=== PATIENT | female | born 1970 | race Caucasian/White ===

== ENCOUNTER 2019-12-10 13:15 | Emergency (ER) | payer OTHER, SELFPAY ==
[2019-12-10 13:21] VITALS: BP 126/85; PULSE 90; RESP 14; TEMP 36.6; O2SAT 100
--- NOTE | 2019-12-10 13:29 | ED.ALLEREA ---
HPI - Allergic Reaction General Chief complaint: Allergic Reaction Stated complaint: allergic reaction Time Seen by Provider: 12/10/19 13:30 Source: patient and RN notes reviewed Mode of arrival: ambulatory Limitations: no limitations History of Present Illness HPI narrative: This is a 49 years old female presents to the office for an evaluation of an allergic reaction to sun chaudhari lotion. States, she woke up with rash after she applied sun-chaudhari lotion. Denies any other associated symptoms include difficulty breathing, swollen lips or facial rash. She has tried prednisone in the past with similar situation and it works great. Denies sick contact. Related Data Home Medications Medication Instructions Recorded Confirmed levothyroxine 75 mcg PO DAILY 12/10/19 12/10/19 Allergies Allergy/AdvReac Type Severity Reaction Status Date / Time No Known Allergies Allergy Verified 12/10/19 13:28 Review of Systems Review of Systems: Narrative: CONSTITUTIONAL: Denies fever or feeling ill ENT: Denies congestion, sore throat, difficult swallowing CARDIOVASCULAR: Denies chest pain RESPIRATORY: Denies dyspnea GASTROINTESTINAL: Denies nausea, vomiting, diarrhea. SKIN: Reports generalize itchy rash on her body; except face MUSCULOSKELETAL: Denies joints pain NEUROLOGIC: Denies lightheaded PMFSH Past Medical History Medical History Allergic rhinitis Hypothyroid Mammogram normal (~2011) Family History Family History Father Family history of malignant neoplasm Mother Family history of malignant neoplasm of breast in first degree relative Sibling Family history of malignant neoplasm of thyroid Other Heart disease Hypertension Social History Social History Smoking status: Never smoker Alcohol intake: current Comments At time of signature, I agree with nursing past medical, surgical, social and family history. There is no relevant family history pertinent to the presenting complaint. Exam Narrative: Exam Narrative: GENERAL: This is a well-nourished, well-developed patient, in no apparent distress. EYES: Sclera clear/white. Vision is grossly intact. CARDIOVASCULAR: Regular rate and rhythm without murmurs, gallops, or rubs. RESPIRATORY: Clear to auscultation. Breath sounds equal bilaterally. No wheezes, rales, or rhonchi. GASTROINTESTINAL: Abdomen soft, non-tender, nondistended. Bowel sounds are active. No hepato-splenomegaly, or palpable masses. No guarding. SKIN: generalize macular-erythema rash noted in upper and lower extremities include torso; no rash noted on face. No erik line or edematous/wheal. NEURO: awake, alert, and oriented to person, place and time. There were no obvious focal neurologic abnormalities. Steady gait [place] Coma Scale Eye Opening: Spontaneous 4 [place] Coma Scale Motor: Obeys Commands 6 [place] Coma Scale Verbal: Oriented 5 Course Vital Signs Vital signs: Vital Signs Temperature 97.8 F 12/10/19 13:21 Pulse Rate 90 12/10/19 13:21 Respiratory Rate 14 12/10/19 13:21 Blood Pressure 126/85 12/10/19 13:21 Pulse Oximetry 100 12/10/19 13:21 Temperature 97.8 F 12/10/19 13:21 Pulse Rate 90 12/10/19 13:21 Respiratory Rate 14 12/10/19 13:21 Blood Pressure 126/85 12/10/19 13:21 Pulse Oximetry 100 12/10/19 13:21 MDM - Allergic Reaction MDM Narrative Medical decision making narrative: Discharge instructions reviewed with patient, as well as provided in writing per nursing staff. The instructions also include specific and strict return/GO TO THE ER as well as f/u information. All questions have been answered, and the patient deny any further questions with discharge and discharge plan. Differential Diagnosis Differential diagnosis: Likely allergic reaction, contact dermatitis, advers
== END 2019-12-10 13:44 | disposition home or self-care (01) ==
PROVIDERS: Emergency Provider Nurse Practitioner; PCP Family Medicine
DX: L23.2 Allergic contact dermatitis due to cosmetics (principal); E03.9 Hypothyroidism, unspecified
CPT/HCPCS: 99213; G0463

== ENCOUNTER 2022-01-24 00:26 | Day surgery (SDC) | payer OTHER, SELFPAY ==
[2022-01-13 10:19] VITALS: BMI 33.2
--- NOTE | 2022-01-23 12:40 | WPDANESEPPF ---
Anes - Initial Pre Proc Eval Procedure: Operation Date: 01/24/22 10:30 Proposed Procedures p Screening Colonoscopy - Eduard Wright MD Date/Time: 01/23/22 12:40 Surgeon: Eduard Wright MD Pre Op Diagnosis: neoplasm screening Patient Data Age: 51 Gender: F Height: 1.6 m Weight: 85 kg Allergies Allergy/AdvReac Type Severity Reaction Status Date / Time No Known Allergies Allergy Verified 01/24/22 09:12 Home Medications Medication Instructions Recorded Confirmed Type atorvastatin 10 mg tablet See Rx Instructions .Route 08/16/21 01/24/22 Rx .COMPLEX #90 tabs levothyroxine 100 mcg tablet 100 mcg PO DAILY #90 tabs 11/11/21 01/24/22 Rx Patient hx anesthesia problems: none Family hx anesthesia problems: none Results Review: All pre-operative results and documents have been reviewed as part of the pre-operative evaluation. COUNT INCLUDES THE [facility] Past Medical History Medical History (Updated 01/24/22 @ 09:54 by Eduard Wright MD) Allergic rhinitis Colon cancer screening Hyperlipidemia Hypothyroid Mammogram normal (~2011) Family History Family History Father Family history of malignant neoplasm Mother Family history of malignant neoplasm of breast in first degree relative Sibling Family history of malignant neoplasm of thyroid Other Heart disease Hypertension Social History Social History (Updated 11/11/21 @ 10:36 by Annabel aTy CMA) Alcohol intake: current Drinks per week: 2 Living arrangements: with family Anes - Eval Final PreProcedure Day of Procedure 01/23/22 12:40 Patient weight: obese Heart: regular rate and rhythm Lungs: clear to auscultation Airway: Mallampati scale class II Neurological: alert and oriented Last oral intake: >/= 8 hours ASA classification: II Emergent: no Anesthetic plan: proceed Anesthesia type and monitoring: general GIVS and standard monitoring Results Review: All pre-operative results and documents have been reviewed as part of the pre-operative evaluation. Informed Consent: The patient's anesthetic plan and its attendant risks and benefits were discussed with the patient/family/POA. Questions were solicited and answers provided to the satisfaction of the patient/family/POA.
[2022-01-24 09:10] VITALS: BP 128/100; PULSE 94; RESP 16; TEMP 36.4; O2SAT 100; BMI 34.0
[2022-01-24] MEDS: LACTATED RINGERS 1,000 ML 150 ML IV CONT (09:30)
--- NOTE | 2022-01-24 09:53 | PM.HPGS ---
History of Present Illness History of Present Illness Consent: Risks, benefits, and alternatives have been discussed and questions answered. Patient agrees to proceed with procedure. Chief complaint: neoplasm screening Narrative: Jennifer Hyde is a 51 year old female here for first screening colonoscopy Review of Systems Constitutional: Constitutional: Denies headache(s) and Denies weakness Eyes: Eyes: Denies blurry vision ENT: Reports Normal hearing present, Denies headache(s) and Denies neck pain Cardiovascular: Cardiovascular: Denies chest pain and Denies dyspnea Respiratory: Respiratory: Denies dyspnea Gastrointestinal: Gastrointestinal: Reports no additional gastrointestinal complaints Genitourinary: Genitourinary: Denies dysuria Musculoskeletal: Musculoskeletal: Denies neck pain Integumentary/Breasts: Skin/Breast: Denies dry skin Neurologic: Reports Normal hearing present, Denies headache(s) and Denies weakness Psychiatric: Psychiatric: Denies anxiety Endocrine: Endocrine: Denies change in body appearance Hematologic/Lymphatic: Hematologic/Lymphatic: Denies easy bleeding Allergic/Immunologic: Allergic/Immunologic: Denies urticaria PMF Past Medical History Medical History (Updated 01/24/22 @ 09:54 by Eduard Wright MD) Allergic rhinitis Colon cancer screening Hyperlipidemia Hypothyroid Mammogram normal (~2011) Family History Family History Father Family history of malignant neoplasm Mother Family history of malignant neoplasm of breast in first degree relative Sibling Family history of malignant neoplasm of thyroid Other Heart disease Hypertension Social History Social History (Updated 11/11/21 @ 10:36 by Annabel Tay CMA) Alcohol intake: current Drinks per week: 2 Living arrangements: with family Meds Home Medications and Allergies Home Medications Medication Instructions Recorded Confirmed Type atorvastatin 10 mg tablet See Rx Instructions .Route 08/16/21 01/24/22 Rx .COMPLEX #90 tabs levothyroxine 100 mcg tablet 100 mcg PO DAILY #90 tabs 11/11/21 01/24/22 Rx Allergies Allergy/AdvReac Type Severity Reaction Status Date / Time No Known Allergies Allergy Verified 01/24/22 09:12 Vital Signs Vital Signs - 24 hr 01/24/22 09:10 Temperature 97.6 F Pulse Rate 94 Respiratory Rate 16 Blood Pressure 128/100 H Pulse Oximetry 100 Oxygen Delivery Room Air Exam Const: General: comfortable and no acute distress HENMT: General nose exam: Normal nares present Eyes: General: appearance normal, both eyes and all related structures Neck: Neck: no JVD Resp: Auscultation: clear to auscultation bilaterally Cardio: Rate: regular rate Rhythm: regular rhythm GI: Inspection: non-distended GI Palp: Yes Soft to palpation Skin: General skin exam: normal color Neuro: General: gait normal Speech: normal speech Extrem: General: normal to inspection Psych: Mental Status: mental status grossly normal Assessment and Plan Assessment and plan (1) Colon cancer screening: Code(s): Z12.11 - Encounter for screening for malignant neoplasm of colon Status: Acute Assessment and Plan: colonoscopy
[2022-01-24 10:22] VITALS: BP 111/79; PULSE 84; RESP 23; O2SAT 100
--- NOTE | 2022-01-24 10:24 | SUR.OPER ---
2nd Transverse colon polyp unretrieved, Dr. Dacosta aware, no further orders received.
[2022-01-24 10:32] VITALS: BP 116/83; PULSE 79; RESP 21; O2SAT 100
[2022-01-24 10:42] VITALS: BP 126/92; PULSE 64; RESP 21; O2SAT 100
== END 2022-01-24 10:52 | disposition home or self-care (01) ==
PROVIDERS: PCP Family Medicine; Visit Provider Internal Medicine Gastroenterology
PROC: 0DJD8ZZ Inspection of Lower Intestinal Tract, Via Natural or Artificial Opening Endoscopic (ICD-10-PCS; CPT 45378; principal; 2022-01-24 10:30)
DX: Z12.11 Encounter for screening for malignant neoplasm of colon (principal); D12.0 Benign neoplasm of cecum; K63.5 Polyp of colon; K57.30 Diverticulosis of large intestine without perforation or abscess without bleeding; K64.8 Other hemorrhoids; E78.5 Hyperlipidemia, unspecified; E03.9 Hypothyroidism, unspecified; E66.9 Obesity, unspecified; Z68.34 Body mass index [BMI] 34.0-34.9, adult
CPT/HCPCS: 45385; 88305; J2704; J7120

== ENCOUNTER 2024-08-15 15:52 | Outpatient (CLI) | payer OTHER, SELFPAY ==
--- NOTE | ~2024-08-15 | MR_ITS ---
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 TECHNIQUE: Magnetic resonance imaging (MRI) of the left fore/mid foot was performed without intraveno us contrast. Sequences included sagittal T1-weighted FSE, sagittal fluid sensitive FSE STIR, coronal PD-weighted FS FSE, coronal T1-weighted FSE, axial PD-weighted FS FSE, and axial PD-weighted FSE. COMPARISON: None FINDINGS: Bone alignment in the left mid and forefoot is normal with no fracture or pathologic marrow replacing process. There is likely osteoarthritis related mild subarticular cystlike changes at the medial cun eiform at the junction of its its articulations with the navicula and middle cuneiform. Additional mi ld osteoarthritis without degenerative subarticular changes at the first metatarsophalangeal and a fe w tarsal metatarsal joints. Marrow signal is otherwise unremarkable. Visualized portions of the flexo r and extensor tendons are normal. The Lisfranc ligament complex along with the collateral ligament c omplex at the metatarsophalangeal and interphalangeal joints are normal. There is increased signal in the forefoot involving the second and third dorsal and first-third plantar interossei muscles as wel l as the abductor hallucis transverse head muscle without appreciable associated fatty muscular atrop hy which can be seen with acute neuropathy involving portions of the distribution of the deep lateral plantar nerve. The remaining musculature of the mid and forefoot appears unremarkable. There is a small ganglion cys t along the medial margin of the medial cuneiform which appears to arise from the first tarsal metata rsal joint. No joint effusions, tenosynovitis or other abnormal fluid collections. IMPRESSION: 1. Muscular edema involving several of the dorsal and plantar interossei muscles as well as the trans verse head of the abductor hallucis muscle which could be seen with acute denervation change involvin g a portion of the distribution of the deep branch of the lateral plantar nerve. Reviewed, dictated and finalized at location B. [employer] IMPRESSION: 1. Muscular edema involving several of the dorsal and plantar interossei muscle s as well as the transverse head of the abductor hallucis muscle which could be seen with acute denervation change involving a portion of the distribution of the deep branch of the lateral plantar nerve.
== END 2024-08-15 15:53 | disposition home or self-care (01) ==
PROVIDERS: PCP Orthopaedic Surgery; Visit Provider Orthopaedic Surgery
DX: G57.62 Lesion of plantar nerve, left lower limb (principal); R60.9 Edema, unspecified
CPT/HCPCS: 73718

== ENCOUNTER 2025-01-02 12:40 | Outpatient (CLI) | payer OTHER, SELFPAY ==
--- NOTE | ~2025-01-02 | MM_ITS ---
EXAMINATION: MM screening [facility] BI w helio INDICATION: Asymptomatic, referred for screening mammogram COMPARISON: None available TECHNIQUE: Digital Breast Tomosynthesis CC, MLO views of Both breasts were obtained with computer-ai ded detection to assist in interpretation of the study. FINDINGS: The breasts are almost entirely fatty. There is an asymmetry seen on the MLO view in the superior subareolar location in the right breast. Elsewhere, there are no mammographic features of malignancy. IMPRESSION: 1. Right breast Asymmetry. 2. No evidence of malignancy in the Left breast. RECOMMENDATION: Right breast Diagnostic mammogram with true lateral, appropriate spot compression views and an ultras ound if needed. BI-RADS 0, INCOMPLETE, NEEDS ADDITIONAL IMAGING EVALUATION Reviewed, dictated and finalized at location B. IMPRESSION: 1. Right breast Asymmetry. 2. No evidence of malignancy in the Left breast. RECOMMENDATION: Right breast Diagnostic mammogram with true lateral, appropriate spot compressi on views and an ultrasound if needed. BI-RADS 0, INCOMPLETE, NEEDS ADDITIONAL IMAGING EVALUATION
== END 2025-01-02 12:41 | disposition home or self-care (01) ==
LOC: MICIMG 12:41
PROVIDERS: PCP Family Medicine; Visit Provider Obstetrics & Gynecology
DX: R92.8 Other abnormal and inconclusive findings on diagnostic imaging of breast (principal); Z12.31 Encounter for screening mammogram for malignant neoplasm of breast
CPT/HCPCS: 77063; 77067

== ENCOUNTER 2025-01-24 10:37 | Outpatient (CLI) | payer OTHER, SELFPAY ==
--- NOTE | ~2025-01-24 | MM_ITS ---
EXAMINATION: MM diagnostic corie RT w helio HISTORY: Right breast asymmetry TECHNIQUE: Additional 3-D tomosynthesis images of the right breast were performed and synthetic 2-D i mages were generated. CAD analysis was submitted and interpreted. COMPARISON: 01/02/2025 BREAST PARENCHYMAL COMPOSITION:Not Dense. The breasts are almost entirely fatty FINDINGS: Right breast asymmetry effaces with spot compression. No persistent mass lesion or distorti on. No suspicious microcalcification. IMPRESSION: No mammographic evidence for malignancy. BI-RADS Category 1: Negative Reviewed, dictated and finalized at location .
== END 2025-01-24 10:38 | disposition home or self-care (01) ==
PROVIDERS: PCP Family Medicine; Visit Provider Obstetrics & Gynecology
DX: R92.8 Other abnormal and inconclusive findings on diagnostic imaging of breast (principal)
CPT/HCPCS: 77061; 77065; G0279

== ENCOUNTER 2025-07-24 00:24 | Day surgery (SDC) | payer OTHER, SELFPAY ==
[2025-01-06 11:53] VITALS: BMI 32.8
[2025-07-05 10:52] VITALS: BMI 32.8
[2025-07-24 08:42] VITALS: BP 124/90; PULSE 104; RESP 16; TEMP 36.7; O2SAT 99; BMI 33.3
[2025-07-24] MEDS: LACTATED RINGERS 1,000 ML 150 ML IV CONT (08:52)
--- NOTE | 2025-07-24 10:02 | WPDANESEPPF ---
Anes - Initial Pre Proc Eval Procedure: Operation Date: 07/24/25 10:00 Proposed Procedures p Colonoscopy - Eduard Wright MD Date/Time: 07/24/25 10:02 Surgeon: Eduard Wright MD Pre Op Diagnosis: Personal hx of colon polyps Patient Data Age: 54 Gender: F Height: 1.6 m Weight: 85.4 kg Last Vital Signs Temp 36.7 C 07/24/25 08:42 Pulse 104 H 07/24/25 08:42 Resp 16 07/24/25 08:42 BP 124/90 07/24/25 08:42 Pulse Ox 99 07/24/25 08:42 O2 Del Method Room Air 07/24/25 08:42 Allergies Allergy/AdvReac Type Severity Reaction Status Date / Time No Known Allergies Allergy Verified 07/24/25 08:37 Home Medications ?Medication ?Instructions ?Recorded ?Confirmed ?Type naproxen 500 mg tablet See Rx Instructions .Route 10/24/24 07/24/25 Rx .COMPLEX #60 tabs semaglutide (weight loss) 0.25 0.25 mg subcut WEEKLY 01/06/25 07/24/25 History mg/0.5 mL subcutaneous pen injector atorvastatin 10 mg tablet See Rx Instructions .Route 02/20/25 07/24/25 Rx .COMPLEX #90 tabs multivitamin 1 tablet PO DAILY 02/22/25 07/24/25 History levothyroxine 100 mcg tablet 100 mcg PO DAILY #90 tabs 06/20/25 07/24/25 Rx estradiol 1 mg tablet 1 mg PO DAILY #90 tabs 06/21/25 07/24/25 Rx progesterone micronized 200 mg 200 mg PO QHS 90 days #90 caps 06/21/25 07/24/25 Rx capsule (Prometrium) Patient hx anesthesia problems: none Family hx anesthesia problems: none Results Review: All pre-operative results and documents have been reviewed as part of the pre-operative evaluation. 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 Metatarsalgia of left foot Acquired cavovarus deformity of left foot Screening mammogram, encounter for Colon cancer screening Hyperlipidemia Hypothyroid Allergic rhinitis Mammogram normal (~2011) Family History Family History Father Family history of malignant neoplasm Hypertension Heart disease Multiple myeloma Mother Family history of malignant neoplasm of breast in first degree relative Sibling Family history of malignant neoplasm of thyroid sister Social History Social History Smoking status: Never smoker Second hand tobacco smoke exposure: No Alcohol intake: current Drinks per week: 2 Alcohol use details: occasionnally Substance use: never Substance use type: does not use Lack of Transportation: No Lack of Food: Never True Current Housing: Decline to Answer Concerned About Future Housing: Decline to Answer Difficulty Paying Gas/Electric Bills: Decline to Answer Difficulty Paying for Meds: Decline to Answer Currently Unemployed: Decline to Answer Education: Decline to Answer Difficulty w/ Childcare or Family Care: Decline to Answer Living arrangements: with family Additional living arrangements comments: Occupation/Education: occupation Additional occupation/education comments: teacher Gender identity (if verbalized by the patient): Female Sexual Orientation (if Verbalized by the Patient): Straight or Heterosexual Spiritual care concerns: No Agree to blood products: Yes Anes - Eval Final PreProcedure Day of Procedure 07/24/25 10:02 Patient weight: obese Heart: regular rate and rhythm Lungs: clear to auscultation Airway: Mallampati scale class II Neurological: alert and oriented Last oral intake: >/= 8 hours ASA classification: II Emergent: no Anesthetic plan: proceed Anesthesia type and monitoring: general GIVS and standard monitoring Results Review: All pre-operative results and documents have been reviewed as part of the pre-operative evaluation. Informed Consent: The patient's anesthetic plan and its attendant risks and benefits were discussed with the patient/family/POA. Questions were solicited and answers provided to the satisfaction of the patient/family/POA.
--- NOTE | 2025-07-24 10:03 | P.HP_ITS ---
History of Present Illness History of Present Illness Consent: Risks, benefits, and alternatives have been discussed and questions answered. Patient agrees to proceed with procedure. 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 Metatarsalgia of left foot Acquired cavovarus deformity of left foot Screening mammogram, encounter for Colon cancer screening Hyperlipidemia Hypothyroid Allergic rhinitis Mammogram normal (~2011) Family History Family History Father Family history of malignant neoplasm Hypertension Heart disease Multiple myeloma Mother Family history of malignant neoplasm of breast in first degree relative Sibling Family history of malignant neoplasm of thyroid sister Social History Social History Smoking status: Never smoker Second hand tobacco smoke exposure: No Alcohol intake: current Drinks per week: 2 Alcohol use details: occasionnally Substance use: never Substance use type: does not use Lack of Transportation: No Lack of Food: Never True Current Housing: Decline to Answer Concerned About Future Housing: Decline to Answer Difficulty Paying Gas/Electric Bills: Decline to Answer Difficulty Paying for Meds: Decline to Answer Currently Unemployed: Decline to Answer Education: Decline to Answer Difficulty w/ Childcare or Family Care: Decline to Answer Living arrangements: with family Additional living arrangements comments: Occupation/Education: occupation Additional occupation/education comments: teacher Gender identity (if verbalized by the patient): Female Sexual Orientation (if Verbalized by the Patient): Straight or Heterosexual Spiritual care concerns: No Agree to blood products: Yes Meds Home Medications and Allergies Home Medications ?Medication ?Instructions ?Recorded ?Confirmed ?Type naproxen 500 mg tablet See Rx Instructions .Route 0 10/24/24 07/24/25 Rx .COMPLEX #60 tabs semaglutide (weight loss) 0.25 0.25 mg subcut WEEKLY 0 01/06/25 07/24/25 History mg/0.5 mL subcutaneous pen injector atorvastatin 10 mg tablet See Rx Instructions .Route 0 02/20/25 07/24/25 Rx .COMPLEX #90 tabs multivitamin 1 tablet PO DAILY 02/22/25 1 09/24/24 History levothyroxine 100 mcg tablet 100 mcg PO DAILY #90 tabs 06/20/25 07/24/25 Rx estradiol 1 mg tablet 1 mg PO DAILY #90 tabs 06/2107/24/25 Rx progesterone micronized 200 mg 200 mg PO QHS 90 days # 90 caps 06/21/25 07/24/25 Rx capsule (Prometrium) Allergies Allergy/AdvReac Type Severity Reaction Status Date / Time No Known Allergies Allergy Verified 07/24/25 08:37 Vital Signs Vital Signs - 24 hr 07/24/25 08:42 Temperature 98.1 F Pulse Rate 104 H Respiratory Rate 16 Blood Pressure 124/90 Pulse Oximetry 99 Oxygen Delivery Room Air Exam Const: General: comfortable and no acute distress HENMT: Face/Nose/Sinus: Normal nares present Eyes: General: appearance normal, both eyes and all related structures Neck: Neck: no JVD Resp: Auscultation: clear to auscultation bilaterally Cardio: Rate: regular rate Rhythm: regular rhythm GI: Inspection: non-distended GI Palp: Yes Soft to palpation Skin: General skin exam: normal color Extrem: General: normal to inspection Psych: Mental Status: mental status grossly normal Assessment and Plan Assessment and plan (1) Hx of colonic polyp: Code(s): Z86.0100 - Personal history of colon polyps, unspecified Status: Acute Assessment and Plan: colonoscopy
--- NOTE | 2025-07-24 10:18 | S_PTH ---
PATIENT: Jennifer Hyde LOC: [facility]#:[id number] AGE/SX: 54/F ROOM: RE07/24/[address]: Eduard Wright MD : 1970 BED: DIS: 07/24/2025 SPEC #: [id number] RECD: 07/24/25 11:25 STATUS: CHRIS RERupa #: [id number] MICHAEL: 07/24/25 10:[address]: Eduard Wright DEPT: [facility] Surgical RECD BY: Socorro Madsen ENTERED: 07/24/25 11:25 SP TYPE: Surgical OTHR DR: Marilyn Velasquez DO Tissues: A - Colon Polypectomy Procedures: Hematoxylin and Eosin Stain Gross and Microscopic Level 4
[2025-07-24 10:19] VITALS: BP 108/73; PULSE 93; RESP 19; O2SAT 99
[2025-07-24 10:29] VITALS: BP 123/79; PULSE 93; RESP 19; O2SAT 100
[2025-07-24 10:39] VITALS: BP 128/69; PULSE 91; RESP 18; O2SAT 100
== END 2025-07-24 10:48 | disposition home or self-care (01) ==
PROVIDERS: PCP Family Medicine; Referring Provider Family Medicine; Visit Provider Internal Medicine Gastroenterology
PROC: 0DJD8ZZ Inspection of Lower Intestinal Tract, Via Natural or Artificial Opening Endoscopic (ICD-10-PCS; CPT 45378; principal; 2025-07-24 10:00)
DX: Z12.11 Encounter for screening for malignant neoplasm of colon (principal); D12.2 Benign neoplasm of ascending colon; K57.30 Diverticulosis of large intestine without perforation or abscess without bleeding; K64.8 Other hemorrhoids; E78.5 Hyperlipidemia, unspecified; E03.9 Hypothyroidism, unspecified
CPT/HCPCS: 45380; 88305; J2704; J7120